=== PATIENT | male | born 1965 | race Asian ===

== ENCOUNTER 2021-03-01 11:09 | Emergency (ER) | payer OTHER ==
[2021-03-01 11:28] VITALS: TEMP 97.4; BMI 25.8
[2021-03-01] MEDS ORDERED: CEFAZOLIN 1 GM/D5W 1 GM/50 ML BAG IVPB ONE (11:56)
[2021-03-01] MEDS ORDERED: DIPHTH,PERTUSS(ACELL),TET 0.5 ML DISP.SYRIN IM ONE ×2 (11:57→12:08)
[2021-03-01] MEDS ORDERED: ACETAMINOPHEN 1000 MG/100 ML VIAL (NON FORMULARY) IVPB ONE (11:57)
[2021-03-01] MEDS ORDERED: CEFAZOLIN 1 GM/D5W 1 GM/50 ML BAG ONE (12:07)
[2021-03-01] MEDS ORDERED: ACETAMINOPHEN INJECTION 100 ML IVPB ONE (12:07)
[2021-03-01 12:42] LABS: EOS % 4.1 % (0-4.5); HEMATOCRIT 43.5 % (35.4-49); HEMOGLOBIN 14.9 GM/dL (11.7-16.9); MCH 30.4 pg (25.7-33.7); MCHC 34.3 g/dl (32.0-35.9); MEAN CELL VOLUME 88.6 fl (80-96); MEAN PLT VOLUME 7.2 fl (7.5-11.1); MONO % 7.5 % (3.8-10.2); NEUT % 61.4 % (42.8-82.8); PLATELET COUNT 262 10^3/uL (134-434); RBC 4.91 M/mm3 (4.00-5.60); WHITE BLOOD COUNT 8.2 K/mm3 (4.0-10.0)
[2021-03-01 12:49] LABS: INR 1.06 (0.83-1.09)
[2021-03-01 13:11] LABS: ALBUMIN 4.3 g/dl (3.4-5.0); BLOOD UREA NITROGEN 28.2 mg/dL (7-18); CALCIUM 9.2 mg/dL (8.5-10.1)
[2021-03-01 13:14] LABS: CREATININE 1.1 mg/dL (0.55-1.3)
[2021-03-01 13:16] LABS: BILIRUBIN,TOTAL 0.5 mg/dL (0.2-1); TOT PROT 8.5 g/dl (6.4-8.2)
[2021-03-01] MEDS ORDERED: morphine CARPU-JECT 4 MG/1 ML DISP.SYRIN IVPUSH ONE (13:31)
[2021-03-01] MEDS ORDERED: morphine SULFATE 4 MG/ML VIAL ONE (13:38)
[2021-03-01 16:57] VITALS: BP 146/97; PULSE 55
== END 2021-03-01 17:08 | disposition short-term general hospital (02) ==
LOC: JER 11:09
PROC: 3E03329 Introduction of Other Anti-infective into Peripheral Vein, Percutaneous Approach (ICD-10-PCS; principal; 2021-03-01)
PROC: 3E033NZ Introduction of Analgesics, Hypnotics, Sedatives into Peripheral Vein, Percutaneous Approach (ICD-10-PCS; 2021-03-01)
PROC: 3E0234Z Introduction of Serum, Toxoid and Vaccine into Muscle, Percutaneous Approach (ICD-10-PCS; 2021-03-01)
PROC: 3E033GC Introduction of Other Therapeutic Substance into Peripheral Vein, Percutaneous Approach (ICD-10-PCS; 2021-03-01)
DX: S62.511B Displaced fracture of proximal phalanx of right thumb, initial encounter for open fracture (principal)
CPT/HCPCS: 36415; 73130-TC-RT-FY; 80053; 85025; 85610; 86850; 86900; 86901; 90715; 99285-25; C9803; J0131; U0003; U0005